=== PATIENT | male | born 2005 | race Caucasian/White ===

== ENCOUNTER 2025-01-30 07:05 | Emergency (ER) | payer SELFPAY ==
[~2025-01-30] VITALS: Ht 182.9 cm; Wt 80.2 kg
[2025-01-30] MEDS: LIDOCAINE VISCOUS 2% 15ML UD PO ONE (07:30)
--- NOTE | 2025-01-30 07:32 | ED.PDOC ---
History of Present Illness HPI Comments 19 y/o M, presents to the ED for CC of ingestion. Patient states, that he was at [employer] where he bit into a silicon object causing it to burst into his mouth (however, it was solid and not liquid); resulting in him to clean his mouth out with bar soap. Patient relays, that since incident he has began to experience symptoms of shortness of breath and mouth numbness. No other associated symptoms, modifiers, recent injuries or sick contacts present at this time. Patient not drooling. Time Seen by MD: 07:20 Reviewed Notes: Nurses Notes, Medications, Allergies Information Source: Patient Mode of Arrival: Ambulatory Severity: Moderate Timing: Hours Duration: Since onset Prehospital treatment: None Past Medical History PAST MEDICAL HISTORY: Denies Surgical History: Denies all surgeries Family History Family History: Unknown Social History Smoker: Unknown Alcohol: Unknown Drugs: Unknown Lives In: Home Constitutional: denies: chills, diaphoresis, fatigue, fever, malaise, sweats, weakness, others EENTM: reports: mouth swelling; denies: blurred vision, double vision, ear bleeding, ear discharge, ear drainage, ear pain, ear ringing, eye pain, eye red ness, hearing loss, mouth pain, nasal discharge, nose bleeding, nose congestion, nose pain, photophobia, tearing, throat pain, throat swelling, voice changes, others Respiratory: reports: shortness of breath; denies: cough, hemoptysis, orthopnea, SOB at rest, SOB with excertion, stridor, wheezing, others Cardiovascular: denies: chest pain, dizzy spells, diaphoresis, Dyspnea on exertion, edema, irregular heart beat, left arm pain, lightheadedness, palpitations, PND, syncope, others Gastrointestinal: denies: abdomen distended, abdominal pain, blood streaked bowels, constipated, diarrhea, dysphagia, difficulty swallowing, hematemesis, melena, nausea, poor appetite, poor fluid intake, rectal bleeding, rectal pain, vomiting, others Genitourinary: denies: burning, dysuria, flank pain, frequency, hematuria, incontinence, penile discharge, penile sore, pain, testicle pain, testicle swelling, urgency, others Neurological: denies: dizziness, fainting, headache, left sided numbness, left sided weakness, numbness, paresthesia, pre-existing deficit, right sided numbness, right sided weakness, seizure, speech problems, tingling, tremors, weakness, others Musculoskeletal: denies: back pain, gout, joint pain, joint swelling, muscle pain, muscle stiffness, neck pain, others Integumetry: denies: bruises, change in color, change in hair/nails, dryness, laceration, lesions, lumps, rash, wounds, others Allergic/Immunocompromised: denies: Difficulty Healing, Frequent Infections, Hives, Itching, others Hematologic/Lymphatic: denies: anemia, blood clots, easy bleeding, easy bruising, swollen glands, others Endocrine: denies: excessive hunger, excessive sweating, excessive thirst, excessive urination, flushing, intolerance to cold, intolerance to heat, unexplained weight gain, unexplained weight loss, others Psychiatric: denies: anxiety, bipolar disorder, depression, hopeless, panic disorder, schizophrenia, sleepless, suicidal, others All Other Systems: Reviewed and Negative Physical Exam General Appearance: No Apparent Distress, Normal HEENT: Normal ENT Inspection, Pharynx Normal, Other (no oral lesions, erythema or discharge. 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 Was a procedure done?: No Differential Dx Considerations may include: herpes, ulcer, trauma, anaphylaxis, FB obstruction Time of 1ST Reevaluation: 07:50 Reevaluation 1ST: Unchanged Patient Education/Counseling: Diagnosis, Treatment Family Education/Counseling: No Family Present Departure 1 Departure Time of Disposition: 07:41 Impression: Primary Impression: Sore mouth Disposition: 01 HOME / SELF CARE / HOMELESS Condition: Good Discharged With: Self Critical Care Note Critical Care Time?: No Stability Stability form required: No Heart Score Heart Score: Heart Score Response (Comments) Value History N/A 0 EKG N/A 0 Age N/A 0 Risk Factors N/A 0 Troponin N/A 0 Total 0 I personally scribed for ASHLY LOVELACE MD ([email or web address]) on 01/30/25 at 07:32. Electronically submitted by Samanhta Cosby ([email or web address]). ASHLY LOVELACE MD Jan 30, 2025 07:32
[2025-01-30 08:09] VITALS: BP 146/107; TEMP 98.7
[2025-01-30 08:11] VITALS: PULSE 85; RESP 17; O2SAT 95
[2025-01-30] MEDS ORDERED: CHLORHEXIDINE 0.12% ORAL rinse 473ML MT SCH (10:00)
== END 2025-01-30 08:17 | disposition home or self-care (01) ==
LOC: ER 07:05
DX: K13.79 Other lesions of oral mucosa (principal)